=== PATIENT | female | born 1970 | race Caucasian/White ===

== ENCOUNTER 2017-08-09 08:18 | Emergency (ER) | payer OTHER ==
[~2017-08-09] VITALS: Ht 157.5 cm; Wt 77.1 kg
[~2017-08-09 08:18] MED LIST: ACET-6134 PO; CITA20TA15 PO; RISP0.5T3 PO
[2017-08-09 08:40] VITALS: BP 126/81
--- NOTE | 2017-08-09 08:46 | NUR ---
PT AMBULATES TO BED 8
--- NOTE | 2017-08-09 08:50 | NUR ---
46/F BIB SELF with c/o difficultly breathing x 1 week, worse at night. Clear speech with full sentences. Patient also report of subjective fevers and dry cough. hx--asthma.DENIES N/V/D; SKIN IS PINK/WARM/DRY; AAOX4 WITH EVEN AND STEADY GAIT; LUNGS CLEAR BL; HR EVEN AND REGULAR; PT DENIES ANY FEVER, CP, SOB, OR COUGH AT THIS TIME; PATIENT STATES PAIN OF 0/10 AT THIS TIME; VSS; PATIENT POSITIONED FOR COMFORT; HOB ELEVATED; BEDRAILS UP X2; BED DOWN. ER MD MADE AWARE OF PT STATUS.
[2017-08-09] MEDS ORDERED: ALBUTEROL SULFATE/IPRATROPIU 3 ML SOL IH ONE (09:00)
--- NOTE | 2017-08-09 09:12 | NUR ---
Patient being evaluated by DR RON at bedside.
[2017-08-09] MEDS ORDERED: methylPREDNISolone SS 125 MG/2 ML VIAL IVP ONE (09:30)
[2017-08-09 10:08] LABS: BASOPHILS # (AUTO) 0.2 K/uL (0.00-0.22); BASOPHILS % (AUTO) 3.5 % (0.0-2.0); EOSINOPHILS # (AUTO) 0.1 K/uL (0-0.4); EOSINOPHILS % (AUTO) 2.4 % (0.0-4.0); HEMOGLOBIN 13.2 g/dL (12.0-16.0); LYMPHOCYTES # (AUTO) 1.8 K/uL (2.5-16.5); LYMPHOCYTES % (AUTO) 30.6 % (20.5-51.1); MEAN CORPUSCULAR HEMOGLOBIN 30 pg (27-31); MEAN CORPUSCULAR HGB CONC 34 g/dL (33-37); MEAN CORPUSCULAR VOLUME 87.8 fL (80-94); MONOCYTES # (AUTO) 0.4 K/uL (0.8-1.0); MONOCYTES % (AUTO) 5.9 % (1.7-9.3); NEUTROPHILS # (AUTO) 3.4 K/uL (1.8-7.7); NEUTROPHILS % (AUTO) 57.6 % (42.2-75.2); PLATELET COUNT (AUTO) 249 K/uL (140-450); RED BLOOD CELL COUNT(AUTO) 4.44 MIL/uL (4.20-5.40); RED CELL DISTRIBUTION WIDTH 13.4 % (11.6-13.7)
[2017-08-09 10:19] LABS: ANION GAP 11.2 (8-16); CARBON DIOXIDE 29.4 mmol/L (21-32); CREATININE 0.7 mg/dL (0.6-1.3); POTASSIUM 3.6 mmol/L (3.5-5.1)
[2017-08-09 10:24] LABS: ALBUMIN 3.6 g/dL (3.4-5.0); TOTAL BILIRUBIN 0.6 mg/dL (0.0-1.0)
[2017-08-09 12:19] LABS: APPEARANCE,URINE SLIGHTLY HAZY (CLEAR); BLOOD, URINE NEG (NEGATIVE); COLOR,URINE YELLOW (YELLOW); PH,URINE 7.5 (5.0-9.0); UGLUCOSE NEG (NEGATIVE)
[2017-08-09 12:20] LABS: BILIRUBIN,URINE NEGATIVE (NEGATIVE); NITRITE, URINE NEGATIVE (NEGATIVE)
[2017-08-09 12:40] LABS: BARBITURATE, URINE NEGATIVE ng/ml (NEG <=200); BENZODIAZEPINE, URINE NEGATIVE ng/mL (NEG <=200); CANNABINOID, URINE NEGATIVE ng/mL (NEG <=50); COCAINE, URINE NEGATIVE ng/mL (NEG <=300); OPIATE, URINE NEGATIVE ng/mL (NEG <=2000); PHENCYCLIDINE SCREEN,URINE NEGATIVE ng/mL (NEG <=25)
[2017-08-09 12:52] VITALS: BP 131/84
--- NOTE | 2017-08-09 12:52 | NUR ---
Patient discharged with v/s stable. Written and verbal after care instructions given and explained. Patient alert, oriented and verbalized understanding of instructions. Ambulatory with steady gait. All questions addressed prior to discharge. ID band removed. Patient advised to follow up with PMD. Rx of AZITHROMYCIN&PROMETHAZINE given. Patient educated on indication of medication including possible reaction and side effects. Opportunity to ask questions provided and answered.
[2017-08-09 13:30] LABS: LEUKOCYTE ESTERASE ,URINE 1+ (NEGATIVE); WBC,URINE 0-5 (RARE) /HPF (0-5)
[2017-08-09 13:31] LABS: RBC,URINE NONE SEEN /HPF (0-5)
== END 2017-08-09 12:52 | disposition home or self-care (01) ==
LOC: MED 08:18
DX: J40 Bronchitis, not specified as acute or chronic (principal); F17.210 Nicotine dependence, cigarettes, uncomplicated; J44.9 Chronic obstructive pulmonary disease, unspecified; Z79.899 Other long term (current) drug therapy
CPT/HCPCS: 36415; 71045; 80053; 80305; 81001; 81025; 84484; 85025; 87086; 93005; 96374; 99285; J2930; J7620; Q0092

== ENCOUNTER 2023-02-25 07:33 | Emergency (ER) | payer MEDICARE, MEDICAID ==
[~2023-02-25] VITALS: Ht 167.6 cm; Wt 72.6 kg
[~2023-02-25 07:33] MED LIST changes: +ACET-10509 PO; -ACET-6134 PO
[2023-02-25 08:05] VITALS: BP 141/86; PULSE 90; RESP 18; TEMP 98.6; O2SAT 98
[2023-02-25] MEDS ORDERED: KETOROLAC 60 MG/2 ML VIAL IM ONE (09:05)
[2023-02-25] MEDS ORDERED: PRED20TA5 PO (09:10)
[2023-02-25] MEDS ORDERED: NIRM1TAB9 PO (09:10)
[2023-02-25] MEDS ORDERED: IBUP-2213 PO (09:10)
[2023-02-25 09:32] VITALS: BP 141/86; PULSE 90; RESP 18; TEMP 98.6; O2SAT 98
== END 2023-02-25 09:32 | disposition home or self-care (01) ==
LOC: MED 07:33
DX: U07.1 COVID-19 (principal); Z79.899 Other long term (current) drug therapy
CPT/HCPCS: 96372; 99283; J1885